=== PATIENT | male | born 1955 | race Two or more races ===

== ENCOUNTER 2021-01-16 18:50 | Emergency (ER) | payer MEDICAID ==
[~2021-01-16] VITALS: Ht 172.7 cm; Wt 90.7 kg
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
--- NOTE | 2021-01-16 19:01 | NUR ---
SEEN AND EXAMINED BY .
--- NOTE | 2021-01-16 19:10 | NUR ---
PT IS WHEELED TO CT SCAN VIA [facility].
--- NOTE | 2021-01-16 20:07 | NUR ---
pt is medically stable for D/C. Patient discharged to home in stable condition. Written and verbal after care instructions given. Patient verbalizes understanding of instruction.
[2021-01-16 20:08] VITALS: BP 153/78
== END 2021-01-16 20:09 | disposition home or self-care (01) ==
LOC: ER 18:53
DX: S01.311A Laceration without foreign body of right ear, initial encounter (principal); R51.9 Headache, unspecified; Z59.0 Homelessness; Y08.89XA Assault by other specified means, initial encounter; Y93.89 Activity, other specified; Y92.89 Other specified places as the place of occurrence of the external cause; Y99.8 Other external cause status
CPT/HCPCS: 70450-TC; 72125-TC